=== PATIENT | male | born 1950 | race Caucasian/White ===

== ENCOUNTER 2018-08-12 13:01 | Outpatient (CLI) | payer BC ==
--- NOTE | 2018-08-12 13:45 | ULT ---
EXAM: US Thyroid STANDARD PROVIDED CLINICAL HISTORY: Right thyroid nodule. COMPARISON: None FINDINGS: Thyroid isthmus measures 0.3 cm in AP dimensions. The right lobe of the thyroid gland measures 4.5 cm x 1.3 cm x 1.8 cm. A heterogeneous cystic and stanley id nodule is seen in the superior pole right lobe of the thyroid gland measuring 1.5 cm x 1 cm x 0.9 cm. A few punctate echogenic foci are seen within this nodule. The left lobe of the thyroid gland measures 4.3 cm x 1.5 cm x 1.5 cm. Small heterogeneous nodule is s een in the inferior pole measuring 0.5 cm. IMPRESSION: TI-RADS Level 5. Highly suspicious nodule. Fine-needle aspiration is recommended.
== END 2018-08-12 13:02 | disposition home or self-care (01) ==
LOC: BICULT 13:01
PROVIDERS: ATTEND Family Medicine
DX: E04.1 Nontoxic single thyroid nodule (principal)
CPT/HCPCS: 76536

== ENCOUNTER → 2018-08-21 | Day surgery (SDC) | payer BC ==
[2018-08-20 14:49] VITALS: BMI 26.7
[~2018-08-21] MED LIST: Lidocaine 1% PF 5 ML VIAL ONE; Prevnar 13-Val Conj/PF 0.5 ML SYRINGE IM ONE; Sodium Bicarbonate 2.5 MEQ/5 ML VIAL ONE
[2018-08-21 13:47] VITALS: BP 126/69; TEMP 98.2
--- NOTE | 2018-08-21 14:53 | ULT ---
ULTRASOUND GUIDED FINE NEEDLE ASPIRATION NODULE RIGHT LOBE OF THYROID: 08/21/18 INDICATIONS: Thyroid nodule had been previously identified. The patient is sent for ultrasound guided FNA. FINDINGS: Three FNA samples obtained through the mid portion of this nodule under ultrasound guidance using a 2 5 gauge needle. Samples were given to pathology and adequacy was confirmed. Postprocedure scan shows no evidence of hematoma. PROCEDURE NOTE: The anterior neck was prepped and draped in the sterile manner. The nodule in the right lobe of the t hyroid is again identified. Local anesthesia is administered under ultrasound guidance. 25 gauge need le was used to enter this nodule with ultrasound guidance. FNA performed under ultrasound observation . This was repeated x3. Each sample was confirmed with ultrasound through the mid portion of the nodule . There were no complications. Patient tolerated the procedure well. POS: CANDACE
== END ==
LOC: ULT 12:32
PROVIDERS: ATTEND Family Medicine
PROC: 0G9H3ZX Drainage of Right Thyroid Gland Lobe, Percutaneous Approach, Diagnostic (ICD-10-PCS; principal; 2018-08-21)
DX: E04.1 Nontoxic single thyroid nodule (principal); I25.10 Atherosclerotic heart disease of native coronary artery without angina pectoris; E78.5 Hyperlipidemia, unspecified; Z79.82 Long term (current) use of aspirin; Z79.899 Other long term (current) drug therapy; Z95.5 Presence of coronary angioplasty implant and graft; Z98.890 Other specified postprocedural states
CPT/HCPCS: 60100; 76942; 88173; J2001

== ENCOUNTER 2019-03-17 13:54 | Outpatient (CLI) | payer BC ==
--- NOTE | 2019-03-17 14:34 | ULT ---
Exam: THYROID ULTRASOUND: HISTORY: Right thyroid nodule. COMPARISON: 08/12/2018, 08/21/2018. FINDINGS: Thyroid isthmus measures 0.38 cm. Right thyroid lobe measures 4.9 x 1.3 x 1.8 cm. Left thyroid lobe measures 4.2 x 1.4 x 1.4 cm. Thyroid nodules: Right thyroid lobe demonstrates a solid nodule in the upper pole measuring 1.5 x 1.4 x 1.0 cm. This n odule has undergone previous biopsy. Correlate with pathologic diagnosis. There is a smaller solid nodule in the lower pole left thyroid lobe measuring 0.6 x 0.5 x 0.4 cm. Left thyroid lobe: 2 solid nodules in the upper pole of the left thyroid lobe. Largest nodule measure s 0.4 x 0.6 x 0.5 cm. IMPRESSION: Nodularity throughout the thyroid gland is once again demonstrated. Redemonstration of a solid nodule in the upper pole of the right thyroid lobe which has been demonstrated to be 1.0 x 1 0.9 x 1.7 cm in August 2018. This nodule did undergo ultrasound-guided fine-needle aspiration. Refer to biopsy patho logy report to correlate with pathologic diagnosis. Transcribed Date/Time: 03/17/2019 2:46 PM
== END 2019-03-17 13:55 | disposition home or self-care (01) ==
LOC: BICULT 13:54
PROVIDERS: ATTEND Family Medicine
DX: E04.1 Nontoxic single thyroid nodule (principal)
CPT/HCPCS: 76536

== ENCOUNTER 2019-10-21 07:48 | Outpatient (CLI) | payer BC, OTHER ==
[2019-10-21 18:01] LABS: #Basophils 0.1 thou/uL (0.0-0.2); #Eosinphils 0.4 thou/uL (0.0-0.7); #Lymphocytes 3.5 thou/uL (1.20-3.40); #Monocytes 0.7 thou/uL (0.11-0.59); #Neutrophils 4.8 thou/uL (1.40-6.50); %Basophils 0.8 % (0.0-1.0); %Eosinophils 4.4 % (0.0-10.0); %Lymphocytes 37.2 % (21.0-51.0); %Monocytes 7.6 % (0.0-10.0); Hemoglobin 14.5 g/dL (14.0-18.0); Mean Corpuscular HGB CONC 32.4 g/dL (32.0-36.0); Mean Corpuscular Hemoglobin 32.1 pg (27.0-31.0); Mean Corpuscular Volume 99.1 fL (78.0-98.0); Mean Platelet Volume 7.6 fL (7.4-10.4); Platelet Count 251 thou/uL (130-400); RBC Distribution Width 12.5 % (11.5-14.5); Red Blood Cell (RBC) Count 4.52 mill/uL (4.70-6.10); White Blood Cell (WBC) Count 9.5 thou/uL (4.8-10.8)
[2019-10-21 18:59] LABS: ALT (SGPT) 13 U/L (8-55); AST (SGOT) 18 U/L (5-34); Albumin 4.4 g/dL (3.4-4.8); Alkaline Phosphatase 68 U/L (40-110); Anion Gap 12 mmol/L (10-20); BUN (Urea Nitrogen) 14 mg/dL (8.4-25.7); Bilirubin, Total 0.6 mg/dL (0.2-1.2); Calc. Creatinine Clearance 0 mL/min (70-130); Calcium 10.2 mg/dL (7.8-10.44); Carbon Dioxide 27 mmol/L (23-31); Chloride 105 mmol/L (98-107); Estimated GFR-MDRD 82; Globulin 2.7 g/dL (2.4-3.5); Glucose 107 mg/dL (80-115); Potassium 4.4 mmol/L (3.5-5.1); Protein, Total 7.1 g/dL (5.8-8.1); Sodium 140 mmol/L (136-145)
[2019-10-22 13:03] LABS: SARS-CoV-2 MS2 Positive; SARS-CoV-2 N Gene Negative; SARS-CoV-2 S Gene Negative; SARS-CoV-2 by NAA Not Detected (NotDetected); SARS-CoV-2 orf1ab Negative
== END 2019-10-21 07:49 | disposition home or self-care (01) ==
LOC: LABBT 07:48
PROVIDERS: ATTEND Surgery
DX: Z01.818 Encounter for other preprocedural examination (principal); K40.90 Unilateral inguinal hernia, without obstruction or gangrene, not specified as recurrent; Z20.828 Contact with and (suspected) exposure to other viral communicable diseases
CPT/HCPCS: 80053; 85025; 87635; 93005; 93010; U0003

== ENCOUNTER 2019-12-12 08:44 | Outpatient (CLI) | payer BC ==
--- NOTE | 2019-12-12 09:14 | RAD ---
RIGHT RIBS 3 VIEWS CHEST 1 VIEW: HISTORY: Right chest wall injury. FINDINGS: No displaced rib fracture or pneumothorax apparent. Cardiac silhouette and pulmonary vasculature are unremarkable. Degenerative changes of the thoracic spine and right shoulder. Mild chronic-appearing compression of the L1 inferior end plate is partially visualized. IMPRESSION: No acute abnormalities are demonstrated. POS: BST
== END 2019-12-12 08:45 | disposition home or self-care (01) ==
LOC: BICRAD 08:44
PROVIDERS: ATTEND Family Medicine
DX: R07.89 Other chest pain (principal)

== ENCOUNTER 2021-03-31 09:52 | Outpatient (CLI) | payer BC | END 2021-03-31 09:53 | disposition home or self-care (01) | LOC: BICULT 09:52 | PROVIDERS: ATTEND Family Medicine | DX: E04.2 Nontoxic multinodular goiter (principal) | CPT/HCPCS: 76536 ==

== ENCOUNTER 2021-06-29 08:57 | Outpatient (CLI) | payer BC | END 2021-06-29 08:58 | disposition home or self-care (01) | LOC: BICRAD 08:57 | PROVIDERS: ATTEND Family Medicine | DX: M19.042 Primary osteoarthritis, left hand (principal); M19.041 Primary osteoarthritis, right hand ==

== ENCOUNTER 2023-01-31 13:36 | Outpatient (CLI) | payer BC | END 2023-01-31 13:37 | disposition home or self-care (01) | LOC: ULT 13:36 | PROVIDERS: ATTEND Family Medicine | DX: N50.812 Left testicular pain (principal); N50.89 Other specified disorders of the male genital organs; N43.3 Hydrocele, unspecified | CPT/HCPCS: 76870; 93976 ==

== ENCOUNTER 2023-07-23 12:01 | Outpatient (CLI) | payer BC | END 2023-07-23 12:02 | disposition home or self-care (01) | LOC: NM 12:01 | PROVIDERS: ATTEND Family Medicine | DX: R79.89 Other specified abnormal findings of blood chemistry (principal) | CPT/HCPCS: 78072; A9500 ==

== ENCOUNTER 2023-08-01 13:51 | Outpatient (CLI) | payer BC | END 2023-08-01 13:52 | disposition home or self-care (01) | LOC: BICCT 13:51 | PROVIDERS: ATTEND Family Medicine | DX: R94.6 Abnormal results of thyroid function studies (principal); E07.9 Disorder of thyroid, unspecified | CPT/HCPCS: 70492; 82565 ==